=== PATIENT | female | born 1980 | race American Indian/Alaskan Native ===

== ENCOUNTER 2021-12-25 18:55 | Emergency (ER) | payer MEDICAID, OTHER ==
--- NOTE | 2021-12-25 20:29 | XRay Report ---
Right ankle 3 views INDICATION: Fall FINDINGS: Diffuse swelling within the lateral ankle. Calcaneal spurring is noted. No displaced fractu re. Signer Name: Klever Miller MD Signed: 12/25/2021 8:24 PM Workstation Name: [id number]
[2021-12-25] MEDS ORDERED: traMADol 50 MG TAB PO ONE (22:14)
--- NOTE | 2021-12-25 22:25 | Emergency Department Report ---
ED Lower Extremity HPI - General Chief Complaint: Extremity Injury, Lower Stated Complaint: INJURY RIGHT ANKLE Time Seen by Provider: 12/25/21 22:14 Source: patient Mode of arrival: Ambulatory Limitations: No Limitations - History of Present Illness Initial Comments: Patient 41-year-old female who presents for right lateral ankle pain x5 days. States she slipped down 2 steps 1 week ago. Now with pain and swelling with ambulation. Pain is rated at 5/10 pain is exacerbated by prolonged standing and walking. Pain is relieved by nothing tried. MD Complaint: ankle injury - Related Data Previous Rx's Medication Instructions Recorded Last Taken Type Butalb/Acetaminophen/Caffeine 1 cap PO Q6HR PRN #30 cap 01/06/16 Unknown Rx [Fioricet 50-300-40 mg CAP] Ibuprofen [Motrin] 800 mg PO Q8HR PRN #30 tablet 01/06/16 Unknown Rx Lisinopril/Hydrochlorothiazide 1 tab PO QDAY #60 tablet 01/06/16 Unknown Rx [Zestoretic 10-12.5 mg] traMADoL [Ultram 50 MG tab] 50 mg PO Q4-6H PRN #30 tablet 01/06/16 Unknown Rx Naproxen 500 mg PO BID PRN #30 tab 12/25/21 Unknown Rx Allergies Allergy/AdvReac Type Severity Reaction Status Date / Time Penicillins Allergy Swelling Verified 01/20/14 05:58 ED Review of Systems ROS: Stated complaint: INJURY RIGHT ANKLE Other details as noted in HPI Constitutional: denies: chills, fever Eyes: denies: eye pain, eye discharge, vision change ENT: denies: ear pain, throat pain Respiratory: denies: cough, shortness of breath, wheezing Cardiovascular: denies: chest pain, palpitations Endocrine: no symptoms reported Gastrointestinal: denies: abdominal pain, nausea, diarrhea Genitourinary: denies: urgency, dysuria, discharge Musculoskeletal: other (Primary). denies: back pain, joint swelling, arthralgia Skin: denies: rash, lesions Neurological: denies: headache, weakness, paresthesias Psychiatric: denies: anxiety, depression Hematological/Lymphatic: denies: easy bleeding, easy bruising ED Past Medical Hx - Past Medical History Previous Medical History?: Yes Hx Hypertension: Yes Hx Headaches / Migraines: Yes Hx Asthma: Yes Additional medical history: CHRONIC LOW BACK PAIN. - Surgical History Past Surgical History?: Yes Additional Surgical History: ADENOIDS CLEANING. X 1 - Social History Smoking Status: Current Every Day Smoker Substance Use Type: Marijuana - Medications Home Medications: Home Medications Medication Instructions Recorded Confirmed Last Taken Type Butalb/Acetaminophen/Caffeine 1 cap PO Q6HR PRN #30 cap 01/06/16 Unknown Rx [Fioricet 50-300-40 mg CAP] Ibuprofen [Motrin] 800 mg PO Q8HR PRN #30 tablet 01/06/16 Unknown Rx Lisinopril/Hydrochlorothiazide 1 tab PO QDAY #60 tablet 01/06/16 Unknown Rx [Zestoretic 10-12.5 mg] traMADoL [Ultram 50 MG tab] 50 mg PO Q4-6H PRN #30 tablet 01/06/16 Unknown Rx Naproxen 500 mg PO BID PRN #30 tab 12/25/21 Unknown Rx ED Physical Exam - General Limitations: No Limitations General appearance: alert, in no apparent distress - Head Head exam: Present: normocephalic, normal inspection - Eye Eye exam: Present: EOMI Pupils: Present: normal accommodation - ENT ENT exam: Present: mucous membranes moist - Neck Neck exam: Present: normal inspection, full ROM. Absent: tenderness - Respiratory Respiratory exam: Present: normal lung sounds bilaterally. Absent: respiratory distress, wheezes - Cardiovascular Cardiovascular Exam: Present: regular rate, normal rhythm, normal heart sounds. Absent: systolic murmur, diastolic murmur, rubs, gallop - GI/Abdominal GI/Abdominal exam: Present: soft, normal bowel sounds - Rectal Rectal exam: Present: deferred - Extremities Exam Extremities exam: Present: normal inspection, full ROM, tenderness (Right lateral ankle), normal capillary refill, joint swelling - Expanded Lower Extremity Exam Right Ankle exam: Present: full ROM, tenderness, swelling (Right lateral). Absent: abrasion, laceration, ecchymosis, deformity, crepidus, dislocation, erythema, anterior draw sign Foot/Toe exam: Present: full ROM, tenderness, swelling (Right lateral). Absent: abrasion, laceration, ecchymosis, deformity, crepidus, dislocation, erythema, amputation, puncture wound, foreign body, calcaneal tenderness, tenderness at base of 5th metatarsal, nail avulsion, subungual hematoma Neuro vascular tendon exam: Absent: pulse deficit, motor deficit, sensory deficit, tendon deficit Gait: Positive: observed and limited by pain - Back Exam Back exam: Present: normal inspection, full ROM. Absent: muscle spasm, paraspinal tenderness, vertebral tenderness - Neurological Exam Neurological exam: Present: alert, oriented X3, CN II-XII intact, reflexes normal. Absent: motor sensory deficit - Expanded Neurological Exam Expanded Patient oriented to: Present: person, place, time Speech: Present: fluid speech Motor strength exam: RUE: 5, LUE: 5, RLE: 5, LLE: 5 DTR: ankle (R): 1+, ankle (L): 1+ Best Eye Response ([place]): (4) open spontaneously Best Motor Response ([place]): (6) obeys commands Best Verbal Response ([place]): (5) oriented Diane Total: 15 - Psychiatric Psychiatric exam: Present: normal affect, normal mood - Skin Skin exam: Present: warm, dry, intact, normal color. Absent: rash ED Course Vital Signs 12/25/21 19:34 Temperature 98.7 F Pulse Rate 69 Respiratory 18 Rate Blood Pressure 128/81 O2 Sat by Pulse 98 Oximetry ED Lower Extremity MDM - Radiology Data Radiology results: report reviewed, image reviewed Right ankle 3 views INDICATION: Fall FINDINGS: Diffuse swelling within the lateral ankle. Calcaneal spurring is noted. No displaced fracture. Signer Name: Klever Vergara MD Signed: 12/25/2021 8:24 PM Workstation Name: [id number] Transcribed By: CW Dictated By: HALI VERGARA MD Electronically Authenticated By: HALI VERGARA MD Signed Date/Time: 12/25/212023 DD/ 23 TD/TT: - Medical Decision Making X-ray no fracture no subluxation no dislocation moderate soft tissue swelling plan Jaime wrap, NSAIDs as needed, crutches, RICE therapy, follow-up with primary care doctor in 2 to 3 days. Patient verbalized agreement and understanding with discharge plan. Patient DC'd home in stable condition at this time. Critical care attestation.: If time is entered above; I have spent that time in minutes in the direct care of this critically ill patient, excluding procedure time. ED Disposition Clinical Impression: Right ankle sprain Qualifiers: Encounter type: initial encounter Involved ligament of ankle: unspecified ligament Qualified Code(s): S93.401A - Sprain of unspecified ligament of right ankle, initial encounter Disposition: HOME / SELF CARE / HOMELESS Is pt being admited?: No Does the pt Need Aspirin: No Condition: Stable Instructions: Elastic Bandage and RICE Therapy, Ankle Sprain, Phase I Rehab- [facility] Additional Instructions: Take medications as prescribed, use crutches as directed, rice therapy as directed, follow-up with your doctor in 2 to 3 days. Return to emergency department should symptoms worsen. Prescriptions: Naproxen 500 mg PO BID PRN #30 tab PRN Reason: pain Referrals: SURESH QUEEN MD [Staff Physician] - 3-5 Days Forms: Work/School Release Form(ED) Time of Disposition: 22:30
[2021-12-26 00:15] VITALS: BP 148/70
== END 2021-12-25 23:30 | disposition home or self-care (01) ==
LOC: ED 18:55
DX: S93.401A Sprain of unspecified ligament of right ankle, initial encounter (principal); I10 Essential (primary) hypertension; G43.909 Migraine, unspecified, not intractable, without status migrainosus; J45.909 Unspecified asthma, uncomplicated; F17.200 Nicotine dependence, unspecified, uncomplicated; F12.90 Cannabis use, unspecified, uncomplicated; G89.29 Other chronic pain; Z88.0 Allergy status to penicillin; Z98.890 Other specified postprocedural states; Z79.899 Other long term (current) drug therapy; W10.8XXA Fall (on) (from) other stairs and steps, initial encounter; Y93.89 Activity, other specified; Y92.89 Other specified places as the place of occurrence of the external cause; Y99.8 Other external cause status
CPT/HCPCS: 99283